=== PATIENT | female | born 1955 | race Caucasian/White ===

== ENCOUNTER 2024-02-17 23:34 | Emergency (ER) | payer MEDICARE, SELFPAY ==
--- NOTE | ~2024-02-17 | CT_ITS ---
EXAMINATION: CT cervical spine wo con DATE: 02/18/2024 00:36 INDICATION: Head injury TECHNIQUE: Computed tomography (CT) of the cervical spine was performed without intravenous contrast. The dose-length product was 430 mGy-cm. Automated exposure control and iterative reconstruction tech nique were employed. COMPARISON: None FINDINGS: Left occipital skull fracture. Left mastoid effusion. There is opacification of the sphenoi d sinuses. There is intracranial gas, consistent with skull fracture. There is degenerative spondylos is at C5-6 and C6-7. Craniovertebral junction is otherwise unremarkable. Odontoid process is normal. Vertebral body heights are maintained. No vertebral fractures. No evidence for perched facet. No para spinal soft tissue abnormality. There is mild multilevel uncinate hypertrophy. There is a small left apical pneumothorax. IMPRESSION: 1. No acute abnormality of the cervical spine. 2: Left occipital skull fracture. Fluid in the left mastoid air cells is present. Cannot exclude temp oral bone fracture. 3: Pneumocephalus. 4: Small left apical pneumothorax. Dr. Aidan Tellez discussed with Dr. Vaughn Camacho MD at 02/18/2024 06:36 CDT. Reviewed, dictated and finalized at location A. IMPRESSION: 1. No acute abnormality of the cervical spine. 2: Left occipital skull fracture. Fluid in the left mastoid air cells is presen t. Cannot exclude temporal bone fracture. 3: Pneumocephalus. 4: Small left apical pneumothorax. Dr. Aidan Tellez discussed with Dr. Vaughn Camacho MD at 02/18/2024 06:36 CDT .
--- NOTE | ~2024-02-17 | CT_ITS ---
EXAMINATION: CT brain wo con DATE: 02/18/2024 00:36 INDICATION: Head injury after alcohol intoxication. TECHNIQUE: Computed tomography (CT) of the head was performed without intravenous contrast. The dose- length product was 757.00 mGy-cm. Automated exposure control and iterative reconstruction technique w ere employed. COMPARISON: None FINDINGS: There is subarachnoid hemorrhage of the right frontal and left parietal locations. There is hemorrhage involving the left cerebellum which may represent combination of parenchymal and extra-ax ial hemorrhage. There is tiny punctate hemorrhage in the right lateral ventricle, occipital horn chor oid. Generalized brain parenchymal volume loss. There is a left occipital skull fracture. Fluid in th e left mastoid air cells, suspicious for underlying temporal bone fracture. There are air-fluid level s in the paranasal sinuses. There is pneumocephalus. IMPRESSION: 1. Prominent subarachnoid hemorrhage of the right frontal and left parietal locations. Parenchymal an d possible extra-axial hemorrhage of the left cerebellum. Punctate choroid plexus hemorrhage right la teral ventricle, occipital horn. 2: Left occipital skull fracture. Probable left temporal brain fracture. Pneumocephalus. Reviewed, dictated and finalized at location A. IMPRESSION: 1. Prominent subarachnoid hemorrhage of the right frontal and left parietal loc ations. Parenchymal and possible extra-axial hemorrhage of the left cerebellum. Punctate choroid plexus hemorrhage right lateral ventricle, occipital horn. 2: Left occipital skull fracture. Probable left temporal brain fracture. Pneum ocephalus.
--- NOTE | ~2024-02-17 | CT_ITS ---
EXAMINATION: CT facial bones wo con DATE: 02/18/2024 00:37 INDICATION: Head injury. TECHNIQUE: Computed tomography (CT) of the facial bones was performed without intravenous contrast. T he dose-length product was 441.00 mGy-cm. Automated exposure control and iterative reconstruction rai hnique were employed. COMPARISON: None FINDINGS: There is a left occipital skull fracture. There is focal offset of the cortex of the left t emporal bone, images 128-133, consistent with fracture. There is fluid in the mastoid air cells on th e left, consistent with hemorrhage. There is fluid in the sphenoid sinuses. No definitive associated fracture is identified. There is pneumocephalus. Orbits are symmetric. No evidence for disconjugate g aze. Rightward nasal septal deviation. There is mucosal thickening of the remainder of the paranasal sinuses. There is symmetric degenerative changes of the temporomandibular joints. Asymmetry of the ri ght choroid plexus, suspicious for intraventricular hemorrhage. IMPRESSION: 1. Left temporal bone and occipital skull fractures with pneumocephalus. 2: Possible intraventricular hemorrhage right lateral ventricle. 3: Fluid in the sphenoid sinuses, suspicious for nonvisualized fracture. Reviewed, dictated and finalized at location A.
[2024-02-17 23:41] VITALS: BP 128/65; PULSE 96; RESP 17; TEMP 36.1; O2SAT 100
[2024-02-18] VITALS (8 sets, daily range): BP systolic 139–149; BP diastolic 57–81; PULSE 92–100; RESP 14–20; O2SAT 97–100
--- NOTE | 2024-02-18 00:43 | ED.FALL ---
HPI - Fall General Chief Complaint: Fall Stated Complaint: ETOH, GLF, head injury Time Seen by Provider: 02/18/24 00:30 History of Present Illness HPI Narrative: This is a 68-year-old female, with no reported past medical history, brought in by EMS after a ground level fall. The patient had been drinking this evening. She is not sure how she fell. She denies taking blood thinners and complains of 4/10 dull low back pain. Related Data Home Medications Medication Instructions Recorded Confirmed No Home Medications 02/17/24 02/17/24 Allergies Allergy/AdvReac Type Severity Reaction Status Date / Time No Known Allergies Allergy Verified 02/17/24 23:46 Review of Systems Review of Systems: CONSTITUTIONAL: Denies fever, chills, or sweats. CARDIOVASCULAR: Denies chest pain, palpitations, or edema. RESPIRATORY: Denies cough or dyspnea. GASTROINTESTINAL: Denies abdominal pain, nausea, vomiting, or diarrhea. GENITOURINARY: Denies dysuria or hematuria. SKIN: Denies rash or itching. MUSCULOSKELETAL: Low back pain Denies joint pain, or myalgia. NEUROLOGIC: Denies headache, numbness, dizziness, or weakness. PSYCHIATRIC: Denies anxiety or depression. PMFSH Past Medical History Medical History No significant past medical history Surgical History Surgical History No significant past surgical history Social History Social History Smoking status: Never smoker Alcohol intake: current Substance use: never Exam Narrative: GENERAL: Well-developed, well-nourished, and in no acute distress. smells of alcohol HEAD: Normocephalic, atraumatic. EYES: PERRLA and EOMI. ENT: Dry blood in the right nare. Left nare clear, no rhinorrhea, no active epistaxis. Mucous membranes moist. Oropharynx without tonsillar hypertrophy exudate or other lesions. Bilateral TMs pearly patel nonbulging. There is drying blood in the left external auditory canal without active bleeding. No obvious hemotympanum NECK: No midline spine tenderness to palpation, no step-off or crepitus CHEST: Clear to auscultation. No respiratory distress. No wheezes rales or rhonchi HEART: Regular rate and rhythm. No murmur heard. Normal peripheral pulses. ABDOMEN: Soft, nontender, nondistended, normal active bowel sounds. BACK: mild tenderness palpation over approximately L1-L2 EXTREMITIES: Normal range of motion. No edema. SKIN: Warm, dry, no rash. NEURO: Alert and oriented x3. No focal deficit. Moving all 4 limbs spontaneously PSYCH: Normal mood and affect. Course Course Emergency Course: 00:50 - My review of the CT head is concerning for right frontal and left temporal subarachnoid hemorrhage. My review of the CT cervical spine is not immediately concerning for fracture. I discussed the patient with [facility] ED physician, Dr. Choudhury who accepts the ED to ED transfer for trauma. Will give tdap, Keppra and obtain labs. I discussed these findings and recommendations with the patient and her daughter, both of whom voiced understanding and are comfortable with the plan. Vital Signs Vital signs: Vital Signs Temperature 97.0 F L 02/17/24 23:41 Pulse Rate 96 02/17/24 23:41 Respiratory Rate 17 02/17/24 23:41 Blood Pressure 128/65 02/17/24 23:41 Pulse Oximetry 100 02/17/24 23:41 Oxygen Delivery Room Air 02/17/24 23:41 Temperature 97.0 F L 02/17/24 23:41 Pulse Rate 92 02/18/24 01:32 Respiratory Rate 20 02/18/24 01:32 Blood Pressure 139/76 02/18/24 01:32 Pulse Oximetry 100 02/18/24 01:32 Oxygen Delivery Room Air 02/17/24 23:41 MDM - Fall MDM Narrative Medical decision making narrative: Plan: Imaging, tetanus vaccination, anti-epileptics, labs, trauma transfer Differential Diagnosis Differential diagnosis: Likely other
[2024-02-18] MEDS: TETANUS,DIPHTHERIA,AC PERTUSSIS ADULT (0.5 ML) BOOSTRIX IM (01:04)
[2024-02-18] MEDS: levETIRAcetam 1000MG/NACL100ML 1,000 MG/100 ML BAG 400 MG IVPB (01:10)
[2024-02-18 01:11] LABS: Basophils Percent Auto 0.3 % (0.2-1.2); Eosinophils Percent Auto 0.1 % (0-4.4); Hematocrit 42.3 % (37.0-47.0); Hemoglobin 13.6 g/dL (12.0-15.0); Immature Granulocyte Absolute 0.16 K/mm3 (0.00-0.031); Immature Granulocyte Percent A 1.2 % (0-0.5); Lymphocytes Absolute Auto 1.18 K/mm3 (0.9-3.2); Lymphocytes Percent Auto 9.2 % (18.3-44.2); Mean Corpuscular HGB Conc 32.2 g/dl (32-36); Mean Corpuscular Volume 96.4 fl (80-100); Mean Platelet Volume 9.7 fl (7.4-10.4); Monocytes Absolute Auto 0.6 K/mm3 (0.1-0.6); Monocytes Percent Auto 4.3 % (2.6-8.5); Neutrophils Absolute Auto 10.9 K/mm3 (1.3-6.7); Neutrophils Percent Auto 84.9 % (45.5-73.1); Platelet Count Result 268 k/mm3 (150-375); Red Blood Count 4.39 M/mm3 (4.2-5.4); Red Cell Distribution Width 12.6 % (11.5-14.5); White Blood Count 12.9 K/mm3 (4.5-10.0)
[2024-02-18 01:21] LABS: INR 1.1; Prothrombin Time 14.3 Seconds (11.1-14.7)
[2024-02-18 01:25] LABS: Ethanol 168 mg/dL (<10)
== END 2024-02-18 01:45 | disposition short-term general hospital (02) ==
PROVIDERS: Emergency Provider Preventive Medicine Aerospace Medicine
DX: S06.6XAA Traumatic subarachnoid hemorrhage with loss of consciousness status unknown, initial encounter (principal); S02.19XA Other fracture of base of skull, initial encounter for closed fracture; S02.119A Unspecified fracture of occiput, initial encounter for closed fracture; F10.129 Alcohol abuse with intoxication, unspecified; Y90.6 Blood alcohol level of 120-199 mg/100 ml; Z23 Encounter for immunization; G93.89 Other specified disorders of brain; J93.9 Pneumothorax, unspecified; W19.XXXA Unspecified fall, initial encounter
CPT/HCPCS: 36415; 70450; 70486; 72125; 80307; 85025; 85610; 90471; 90715; 96365; 99285; J1953